=== PATIENT | female | born 1975 | race Two or more races ===

== ENCOUNTER 2017-05-16 15:03 | Emergency (ER) | payer SELFPAY ==
[~2017-05-16] VITALS: Ht 154.9 cm; Wt 66.7 kg
--- NOTE | 2017-05-16 15:15 | NUR ---
PT REFUSES BLOOD DRAW AND IV ACCESS, IV FLUIDS DESPITE EDUCATION ON BENEFITS AND RISKS. MD AWARE. PER MD, OK TO GIVE ORAL FLUIDS INSTEAD. PROVIDED WITH WATER.
--- NOTE | 2017-05-16 15:21 | NUR ---
PT BIB [facility] S/P [facility] AFTER BLOOD DONATION TODAY. DENIES HEAD TRAUMA. NO VISIBLE SIGNS OF TRAUMA NOTED. RESP EVEN UNLABORED. SKIN WARM NONDIAPHORETIC. PT DRINKING WATER; REFUSES IVF OR ANY BLOOD DRAW/VENIPUNCTURE DESPITE EDUCATION. NAD NOTED. A/OX4. NO NEURO DEFICITS. IN ER BED 10.
[2017-05-16] MEDS ORDERED: IV NS 0.9% 1,000 ML BAG IV ONE (15:30)
[2017-05-16 16:43] VITALS: BP 103/67
--- NOTE | 2017-05-16 16:44 | NUR ---
AMBULATORY WITH STEADY GAIT. VSS. NAD NOTED. Patient discharged to home in stable condition. Written and verbal after care instructions given. Patient verbalizes understanding of instruction.
== END 2017-05-16 16:44 | disposition home or self-care (01) ==
LOC: ER 15:05
DX: R55 Syncope and collapse (principal)
CPT/HCPCS: 84703-TC; A4606; J7030; Z7610